=== PATIENT | female | born 1990 ===

== ENCOUNTER 2021-02-16 20:04 | Emergency (ER) | payer SELFPAY ==
[2021-02-16 21:21] VITALS: BP 97/71
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
== END 2021-02-17 01:50 | disposition home or self-care (01) ==
LOC: ED 20:04
DX: S00.83XA Contusion of other part of head, initial encounter (principal); Z79.899 Other long term (current) drug therapy; Y04.8XXA Assault by other bodily force, initial encounter; Y93.89 Activity, other specified; Y92.89 Other specified places as the place of occurrence of the external cause; Y99.8 Other external cause status
CPT/HCPCS: 70486; 99283